=== PATIENT | male | born 1960 | race Caucasian/White ===

== ENCOUNTER 2020-09-04 08:50 | Outpatient (CLI) | payer BC, SELFPAY ==
[2020-09-04 09:06] LABS: Hematocrit 47.9 % (40.0-54.0); Hemoglobin 16.2 g/dL (14.0-18.0); Mean Corpuscular HGB Conc 33.8 g/dL (32.0-36.0); Mean Corpuscular Hemoglobin 31.6 pg (27.0-31.0); Mean Corpuscular Volume 93.4 fL (78.0-102.0); Mean Platelet Volume 9.6 fl (8.7-11.0); Platelet Count Result 271 K/mm3 (150-420); Red Blood Count 5.13 M/mm3 (4.70-6.10); Red Cell Distribution Width 12.4 % (11.6-14.4); White Blood Count 8.5 K/mm3 (4.8-10.8)
[2020-09-04 09:58] LABS: Alanine Aminotransferase 45 U/L (16-63); Albumin Level 3.7 g/dL (3.4-5.0); Alkaline Phosphatase 80 U/L (46-116); Anion Gap 8 mmol/L (8-16); Aspartate Amino Transferase 22 U/L (15-37); Bilirubin,Total 0.6 mg/dL (0.00-1.00); Blood Urea Nitrogen 16 mg/dL (7-18); Calcium 9.5 mg/dL (8.5-10.1); Carbon Dioxide 30 mmol/L (21-32); Chloride 104 mmol/L (98-108); Cholesterol 190 mg/dL (0-200); Estimated Glomerular Filt Rate > 60; Glucose 105 mg/dL (70-99); HDL Direct 38 mg/dL (40-60); LDL Cholesterol Calculated 127 mg/dL (<130); Osmolality Calculated 295 mOsm/kg (285-295); Potassium 4.3 mmol/L (3.5-5.1); Sodium 142 mmol/L (136-145); Total Protein 7.3 g/dL (6.4-8.2); Triglycerides 125 mg/dL (0-150)
== END 2020-09-04 08:51 | disposition home or self-care (01) ==
LOC: CHSLAB 08:53
PROVIDERS: PCP Family Medicine; Visit Provider Family Medicine
DX: R68.89 Other general symptoms and signs (principal); A78 Q fever
CPT/HCPCS: 36415; 80053; 80061; 85027; 86638

== ENCOUNTER 2020-09-10 08:07 | Outpatient (CLI) | payer BC, SELFPAY ==
--- NOTE | 2020-09-10 08:14 | EST_ITS ---
Patient Info Name: Jules Johnson Age: 60 years : 1960 Gender: Male Ht: 69 in Wt: 280 lbs BSA: 2.55 m2 HR: 75 bpm BP: 135 / 82 mmHg Heart Rhythm: Sinus Rhythm Technical Quality: Excellent Exam Date: 09/10/2020 9:06 AM Exam Location: [facility] Patient Status: Outpatient Admit Date: 09/10/2020 Staff Ordering Physician: Eber Smiley DO Attending Provider: Alisa BROOKS CEP Exercise Technologist: Rossana Black CRT Exercise Physician: Deidra Brooks CEP Exam Type: CA stress danny w NM Study Info Indications Dyspnea - A nuclear stress test was performed. History/Risk Factors Patient has no known cardiac history or risk factors. Summary 1. 1. Negative lexiscan stress test for ischemic ST changes by ECG criteria. 2. 2. Stable hemodynamics throughout the test. 3. 3. Nuclear scan to follow and will be reported separately. Please correlate with it. Protocol: LEXISCAN Stress ECG Details Stage: REST Duration (min): 1 min : 38 sec HR (bpm): 76 SBP (mmHg): 135 DBP (mmHg): 82 Stage: REST Duration (min): 5 min : 35 sec HR (bpm): 73 SBP (mmHg): 135 DBP (mmHg): 82 Stage: STAGE 1 Duration (min): 0 min : 9 sec HR (bpm): 72 SBP (mmHg): 135 DBP (mmHg): 82 Stage: RECOVERY Duration (min): 0 min : 50 sec HR (bpm): 87 SBP (mmHg): 135 DBP (mmHg): 82 Stage: RECOVERY Duration (min): 1 min : 50 sec HR (bpm): 94 SBP (mmHg): 99 DBP (mmHg): 71 Stage: RECOVERY Duration (min): 2 min : 50 sec HR (bpm): 88 SBP (mmHg): 137 DBP (mmHg): 84 Stage: RECOVERY Duration (min): 3 min : 50 sec HR (bpm): 85 SBP (mmHg): 129 DBP (mmHg): 65 Stage: RECOVERY Duration (min): 4 min : 50 sec HR (bpm): 84 SBP (mmHg): 133 DBP (mmHg): 88 Stage: RECOVERY Duration (min): 5 min : 50 sec HR (bpm): 82 SBP (mmHg): 130 DBP (mmHg): 89 Stage: RECOVERY Duration (min): 6 min : 4 sec HR (bpm): 82 SBP (mmHg): 130 DBP (mmHg): 89 Rest HR: 73 bpm Peak HR: 100 bpm Rest Sys BP: 135 mmHg Peak Sys BP: 137 mmHg Max Pred HR: 159 bpm % Max Pred HR: 63 % Target HR: 135 bpm Max RPP: 13,700 bpm*mmHg Termination Reason: Completion of Protocol Cardiac Symptoms: Dyspnea Total Time: 0 min : 9 sec Rest Coleman BP: 82 mmHg Peak Coleman BP: 84 mmHg Total Dose: 0.4 mg Resting ECG Sinus rhythm, low voltage in precordial leads. Stress ECG No ST changes. Arrhythmias No arrhythmias were observed during the examination. Report Signatures
--- NOTE | 2020-09-10 16:49 | WPDCARIOSTRE ---
Nuclear Stress Test INDICATIONS Indications: Shortness of breath PROCEDURE Procedure Performed: Myocardial Perf Spect-Multi Procedure: Patient underwent a lexiscan injection and immediately after patient was injected with 32.5 mCi of cardiolyte. Multiple tomographic images were obtained. These are of good quality. There is a moderate size, moderate severity anterior and inferior perfusion defects noted during stress imaging. A separate resting images were obtain after patient was injected with 10.5 mCi of cardiolyte. Multiple tomographic images were obtained. These are of good quality. There is a moderate size, moderate severity anterior and inferior perfusion defects noted during rest imaging. CONCLUSION Conclusion: 1. Myocardial perfusion imaging demonstrating a fixed moderate size, moderate severity anterior and inferior perfusion defects secondary to breast and diaphragmatic attenuation artifacts. 2. No evidence of reversible ischemia. 3. Left ventriculogram demonstrated a normal measured ejection fraction of 60%. No wall motion abnormalities. 4. TID score is normal at 1.03.
== END 2020-09-10 08:08 | disposition home or self-care (01) ==
PROVIDERS: PCP Family Medicine; Visit Provider Family Medicine
DX: R68.89 Other general symptoms and signs (principal); R06.02 Shortness of breath
CPT/HCPCS: 78452; 93017; A9502; J2785

== ENCOUNTER 2020-10-25 09:43 | Outpatient (CLI) | payer BC, SELFPAY ==
--- NOTE | 2020-10-25 09:53 | ECHO_ITS ---
Patient Info Name: Jules Johnson Age: 60 years : 1960 Gender: Male Ht: 70 in Wt: 280 lbs BSA: 2.56 m2 HR: 86 bpm BP: 131 / 90 mmHg Heart Rhythm: Sinus Rhythm Technical Quality: Poor Exam Date: 10/25/2020 9:40 AM Exam Location: [facility] Patient Status: Outpatient Admit Date: 10/25/2020 Staff Ordering Physician: Joseph Madrigal MD Page Makeup System Operator: Love Hugo RDCS Attending Provider: Joseph Madrigal MD Referring Physician: Painter CLAUDETTE; Exam Type: CA echo dop color flow w con Study Info Indications I25.10 - Atherosclerotic heart disease of [place] coronary artery without angina pectoris Complete two-dimensional, color flow and Doppler transthoracic echocardiogram is performed with contrast to opacify the left ventricle and to improve the deliniation of the left ventricle endocardial borders. Contrast/Agitated Saline Contrast/Ag. Saline: Definity Amount: 4.00 ml New IV Access: Antecubital Space and Left Site Condition: No extravasation, Site dressing applied and IV removed Reason for Poor Study: patient body habitus History/Risk Factors Hypertension: No Dyslipidemia: No Obesity: Yes Diabetes Mellitus: No Tobacco Use: Former Family History: Coronary Artery Disease Frailty Scale (CSHA): 3: Managing Well Summary 1. Left ventricular chamber dimension is normal. 2. Definity contrast administered improved wall motion interpretation. 3. Left ventricular systolic function is normal, estimated at 60-65%. 4. There is mildly increased left ventricular wall thickness. 5. The left ventricular diastolic function is grade I diastolic dysfunction. 6. E/e' 9 is minimally elevated. 7. Left atrial chamber dimension is mildly enlarged. 8. There is mild aortic valve sclerosis. Left Ventricle E/e' 9 is minimally elevated. Definity contrast administered improved wall motion interpretation. Left ventricular chamber dimension is normal. Left ventricular systolic function is normal, estimated at 60-65%. There is mildly increased left ventricular wall thickness. The left ventricular diastolic function is grade I diastolic dysfunction. Right Ventricle Right ventricular systolic function is normal and with normal TAPSE 2.3 cm. Right ventricular chamber dimension is normal. Left Atria Left atrial chamber dimension is mildly enlarged. Right Atria Right atrial chamber dimension is normal. Aortic Valve The aortic valve is trileaflet. There is mild aortic valve sclerosis. There is no aortic valve stenosis. There is no aortic valve regurgitation. Pulmonic Valve There is no pulmonic regurgitation. Mitral Valve There is no mitral valve stenosis. There is no mitral valve regurgitation. Tricuspid Valve There is no tricuspid valve regurgitation. Pericardium/Pleural There is no pericardial effusion. Inferior Vena Cava Normal inferior vena cava with >50% collapse upon inspiration consistent with normal right atrial pressure, 5 mmHg. Aorta The aortic root size at the sinus of Valsalva is not well visualized. Left Ventricular Outflow Tract Name Value Normal LVOT 2D LVOT Diameter
== END 2020-10-25 09:44 | disposition home or self-care (01) ==
PROVIDERS: PCP Family Medicine; Visit Provider Internal Medicine Infectious Disease
DX: I25.10 Atherosclerotic heart disease of native coronary artery without angina pectoris (principal)
CPT/HCPCS: C8929

== ENCOUNTER 2020-11-20 11:04 | Outpatient (CLI) | payer BC, SELFPAY ==
[2020-11-20 11:27] LABS: Hemoglobin A1C 6.1 % (<5.7)
[2020-11-20 12:27] LABS: Cholesterol 233 mg/dL (0-200); HDL Direct 40 mg/dL (40-60); LDL Cholesterol Calculated 161 mg/dL (<130); Triglycerides 162 mg/dL (0-150)
== END 2020-11-20 11:05 | disposition home or self-care (01) ==
LOC: CHSLAB 11:09
PROVIDERS: PCP Family Medicine; Visit Provider Family Medicine
DX: R73.09 Other abnormal glucose (principal); E66.9 Obesity, unspecified
CPT/HCPCS: 36415; 80061; 83036